=== PATIENT | female | born 1975 | race African-American/Black ===

== ENCOUNTER 2019-09-30 18:07 | Emergency (ER) | payer MEDICAID ==
[~2019-09-30] VITALS: Ht 167.6 cm; Wt 65.0 kg
[2019-10-01 00:16] LABS: *AMPHETAMINES SCREEN URINE NEGATIVE (NEGATIVE); *BARBITURATES SCREEN URINE NEGATIVE (NEGATIVE); *COCAINE SCREEN URINE NEGATIVE (NEGATIVE); CANNABINOID URINE SCREEN NEGATIVE (NEGATIVE); METHADONE URINE SCREEN NEGATIVE (NEGATIVE); OPIATES URINE SCREEN NEGATIVE (NEGATIVE); PHENCYCLIDINE URINE SCREEN NEGATIVE (NEGATIVE)
[2019-10-01 00:16] LABS: CHLORIDE 109 mEq/L (98-107)
[2019-10-01 00:17] LABS: *BENZODIAZEPINES SCREEN URINE NEGATIVE (NEGATIVE)
[2019-10-01 00:19] LABS: HEMATOCRIT. 36.3 % (36.0-48.0); HEMOGLOBIN. 11.8 g/dL (12.0-16.0); MEAN CORPUSCULAR HEMOGLOBIN 27.6 pg (28.0-32.0); MEAN CORPUSCULAR VOLUME 84.9 fL (81.0-99.0); MEAN PLATELET VOLUME 9.4 fl (7.4-10.4); PLATELET 146 x1000/uL (130-400); RED BLOOD CELL COUNT 4.27 mill/uL (4.2-5.4)
[2019-10-01 00:23] LABS: HCG SCREEN NEGATIVE
[2019-10-01 00:32] LABS: ETHANOL BLOOD 342 mg/dL
[2019-10-01 00:58] LABS: ATYPICAL LYMPHOCYTES 1; PLATELET ESTIMATE NORMAL
[2019-10-01] MEDS ORDERED: CHLORDIAZEPOXIDE 25MG CAPSULE PO NR (05:45)
[2019-10-01] MEDS ORDERED: ONDANSETRON 4MG ODT PO NR (05:45)
[2019-10-01] MEDS ORDERED: DIAZEPAM 5 MG TABLET PO ONE (05:45)
[2019-10-01] MEDS ORDERED: SODIUM CHLORIDE 0.9% 1,000 ML IV NR (05:45)
[2019-10-01 07:34] VITALS: BP 115/68
== END 2019-10-01 09:42 | disposition home or self-care (01) ==
LOC: ER 18:07
DX: F10.129 Alcohol abuse with intoxication, unspecified (principal); Y90.8 Blood alcohol level of 240 mg/100 ml or more
CPT/HCPCS: 36415; 80053; 80305; 80320; 81025; 83690; 83880; 84484; 84703; 85025; 99284; Q0162; Z7610; G0480